=== PATIENT | female | born 1995 | race Caucasian/White ===

== ENCOUNTER 2019-09-24 16:28 | Inpatient (IN) | payer BC, OTHER ==
[2019-09-24] MEDS ORDERED: CARBOPROST TROMETHAMINE 250 MCG/ML 1 ML AMP IM PRN (17:03)
[2019-09-24] MEDS ORDERED: TERBUTALINE 1 MG/ML VIAL SQ PRN (17:03)
[2019-09-24] MEDS ORDERED: METHYLERGONOVINE 0.2 MG/ML 1 ML AMP IM PRN (17:03)
[2019-09-24] MEDS ORDERED: LIDOCAINE 0.5% (PF) 5 MG/ML (50 ML SDV) SQ PRN (17:03)
[2019-09-24] MEDS ORDERED: OXYTOCIN 10 UNIT/ML 1 ML VIAL IM PRN (17:03)
[2019-09-24] MEDS ORDERED: BUTORPHANOL 1 MG/ML 1 ML VIAL IV PRN (17:12)
--- NOTE | 2019-09-24 17:12 | P.HPOB ---
History of Present Illness H&P Date: 09/24/19 Chief Complaint: IUP @ 40 4/7 weeks, oligohydramnios This is a 24 yo at 40 4/7 weeks that presented to the office for routine PNV. US done revealing a 7# * ounce fetus with an OBEY of 4 c/w a diagnosis of oligohydramnios. she notes good FM, a reactive NST was obtained. she has been receiving routine care with myself, which has been essentially uncomplicated. she notes an occasional ctx, denies VB or LOF. she has a blood type of O pos, rubella immune, RPR NR, HIV neg, and HbSag neg. GBS culture was positive. Review of Systems Constitutional: Denies chills, Denies fatigue, Denies fever Ears, nose, mouth and throat: Denies headache Cardiovascular: Reports edema Respiratory: Denies dyspnea Gastrointestinal: Denies constipation, Denies diarrhea, Denies nausea, Denies vomiting Genitourinary: Reports Exam Osteopathic Statement: *. No significant issues noted on an osteopathic structural exam other than those noted in the History and Physical/Consult. targeted PE done today, in general this is a well bourished well developed preg nant female in NAD, breathing is noted to be non labored and heart has a RRR, abdomen is gravid and appropriate for GA, on VE she is ntoed to be 1/90/-3. catagory 1 heart tones are noted on NST. Assessment and Plan (1) Post-dates Status: Acute Code(s): O48.0 - POST-TERM SNOMED Code(s): 68453237 (2) Oligohydramnios Status: Acute Code(s): O41.00X0 - OLIGOHYDRAMNIOS, UNSP TRIMESTER, NOT APPLICABLE OR UNSP SNOMED Code(s): 50343490 (3) GBS (group B Streptococcus carrier), +RV culture, currently Status: Acute Code(s): O99.820 - STREPTOCOCCUS B CARRIER STATE COMPLICATING SNOMED Code(s): 2994809844710 Plan: This 24yo at 40 4/7 weeks is admitted to [facility] for induction of labor secondary to oligohydramnios. IV pitocin will be started for induction of labor, she is GBS positive and IV ampicillin will be ordered. stadol vs epidural for pain control during labor.
[2019-09-24] MEDS ORDERED: AMPICILLIN 2,000 MG in SODIUM CHLORIDE 0.9% 100 ML IVPB STA (19:56)
[2019-09-24 20:52] LABS: Amphetamine Screen,Urine Not Detected (NotDetected); Barbiturate Screen,Urine Not Detected (NotDetected); Benzodiazepines Screen,Urine Not Detected (NotDetected); Cocaine Screen,Urine Not Detected (NotDetected); Methadone Screen, Urine Not Detected (NotDetected); Opiate Screen,Urine Not Detected (NotDetected); Oxycodone Screen, Urine Not Detected (NotDetected); Phencyclidine Screen,Urine Not Detected (NotDetected); Tricyclic Antidepressant,Urine Not Detected (NotDetected); Urn Cannabinoid Scrn Detected (NotDetected)
[2019-09-25] MEDS: LACTATED RINGERS 1,000 ML IV SCH ×3 (00:17→21:52)
[2019-09-25] MEDS: OXYTOCIN 30 UNITS/500 ML NS 30 UNIT in SALINE 1 500ML.BAG IV SCH ×2 (00:17→21:50)
[2019-09-25 00:51] LABS: Basophils % (A) 0 %; Eosinophils # (A) 0.1 k/uL (0-0.7); Eosinophils % (A) 1 %; HCT 36.8 % (34.0-46.0); HGB 11.7 gm/dL (11.4-16.0); Lymphocytes # (A) 2.8 k/uL (1.0-4.8); Lymphocytes % (A) 20 %; MCH 27.3 pg (25.0-35.0); MCHC 31.7 g/dL (31.0-37.0); Mean Platelet Volume 8.9; Monocytes # (A) 0.7 k/uL (0-1.0); Monocytes % (A) 5 %; Neutrophils # (A) 10.5 k/uL (1.3-7.7); Neutrophils % (A) 73 %; Platelet Count 297 k/uL (150-450); RBC 4.28 m/uL (3.80-5.40); RDW 13.7 % (11.5-15.5); WBC 14.4 k/uL (3.8-10.6)
[2019-09-25] MEDS: AMPICILLIN 1,000 MG in SODIUM CHLORIDE 0.9% 50 ML IVPB SCH ×5 (04:09→21:49)
[2019-09-25] MEDS ORDERED: fentaNYL (PF) 50 MCG/ML 5 ML AMP ONE (09:19)
[2019-09-25] MEDS ORDERED: ROPIVACAINE 5MG/ML 20ML VIAL ONE (09:19)
[2019-09-25] MEDS ORDERED: SODIUM CHLORIDE 0.9% 100 ML BAG ONE (09:19)
[2019-09-25] MEDS ORDERED: OXYTOCIN 10 UNIT/ML 1 ML VIAL ONE (18:20)
[2019-09-25] MEDS ORDERED: ONDANSETRON 4 MG/2 ML VIAL ONE (18:20)
[2019-09-25] MEDS ORDERED: CITRIC ACID-SODIUM CITRATE 15 ML CUP PO ONE (18:20)
[2019-09-25] MEDS ORDERED: CHLOROPROCAINE 3% 30 MG/ML 20 ML VIAL ONE (18:20)
[2019-09-25] MEDS ORDERED: ACETAMINOPHEN TAB 325 MG TAB PO PRN (19:04)
[2019-09-25] MEDS ORDERED: diphenhydrAMINE 50 MG/ML 1 ML VIAL IVP PRN ×2 (19:04)
[2019-09-25] MEDS ORDERED: ONDANSETRON 4 MG/2 ML VIAL IVP PRN (19:04)
[2019-09-25] MEDS ORDERED: NALOXONE 0.4 MG/ML 1 ML VIAL IV PRN ×2 (19:04→19:07)
[2019-09-25] MEDS ORDERED: HYDROcodone/APAP 5-325MG 1 EACH TAB PO PRN (19:04)
[2019-09-25] MEDS ORDERED: diphenhydrAMINE 50 MG CAP PO PRN (19:04)
[2019-09-25] MEDS ORDERED: METOCLOPRAMIDE 5 MG/ML 2 ML VIAL IVP PRN (19:04)
[2019-09-25] MEDS ORDERED: ZOLPIDEM 5 MG TAB PO PRN (19:04)
[2019-09-25] MEDS ORDERED: SIMETHICONE 80 MG CHEWABLE PO PRN (19:04)
[2019-09-25] MEDS ORDERED: diphenhydrAMINE 25 MG CAP PO PRN (19:04)
[2019-09-25] MEDS ORDERED: MORPHINE SULFATE 2 MG/ML SYRINGE IVP PRN (19:07)
--- NOTE | 2019-09-25 19:14 | P.OP ---
Date of Procedure: 09/25/19 Preoperative Diagnosis: IUP at 40 and 4/sevenths weeks, oligohydramnios, arrest of descent Postoperative Diagnosis: Same plus nuchal 1, occiput transverse presentation. Procedure(s) Performed: Primary low transverse section Anesthesia: epidural (With Duramorph) Surgeon: Zee Sewell Pearl Peller #1: Chayo Matias Estimated Blood Loss (ml): 370 IV fluids (ml): 1,000 Urine output (ml): 100 Pathology: other (Placenta) Condition: stable Disposition: PACU Indications for Procedure: This pleasant 24-year-old 1 para 0 at 40-4/7 weeks presented to labor and delivery for induction of labor secondary to oligohydramnios. Patient was admitted and Pitocin induction of labor was begun. Patient progressed slowly through labor eventually undergoing amniotomy with scant fluid being obtained. Fluid was noted to be clear which could be visualized. Patient soon became uncomfortable requesting epidural placement. Epidural was placed patient was comfortable progressed to complete began pushing and had severe back pain doesn't having her ability to push. Patient stated she was unable to push, after approximately half an hour minimal descent was noted and patient was refusing to push therefore primary was performed. Operative Findings: Normal uterus tubes and ovaries were appreciated. Vigorous viable male delivered at 1837, weight of 7 lbs. 3 oz. with Apgars of 8 and 9 at one and 5 minutes respectively. Description of Procedure: Patient was taken back to the operating suite where epidural anesthesia was found be adequate by the anesthesia department. She was then prepped and draped in the normal sterile fashion in the dorsal supine position. A Pfannenstiel skin incision was made the scalpel and carried through the underlying layer of fascia. Fascia was then incised in the midline and extended laterally. The superior aspect of the fascial incision was then grasped jose c clamps, elevated and underlying rectus muscles dissected off sharply. The inferior aspect of the fascial incision was then grasped with Ludlow clamps, elevated and underlying rectus muscles dissected off sharply once again. The rectus muscles were in the midline the peritoneum was identified and entered. The bladder blade was then inserted. Vesicouterine peritoneum was identified and the bladder flap was then created using sharp and blunt dissection. The bladder blade was then reinserted into the pelvis. Hysterotomy incision was then made with the scalpel and the was then delivered in an occiput transverse presentation with a nuchal cord reduced 1. A delayed cord clamp of 1 minute was prereformed, and then the umbilical cord was doubly clamped and cut. The was then handed off to awaiting RN. The placenta was delivered manually with a three-vessel cord being noted. The uterus was delivered from the abdomen and once again cleared of all clots and debris. The hysterotomy incision was closed with 0 Vicryl in a running locked fashion from one lateral edge the other. A second layer of suture was used to obtain hemostasis. Hemostasis was appreciated. The uterus was then returned to the abdomen and gutters were cleared of all clots and debris. The hysterotomy site was inspected once again and hemostasis was appreciated. This fascia was then closed with 0 Vicryl in a running fashion. The subcutaneous tissue was then irrigated and found to be hemostatic. This was closed with 3-0 Vicryl in a running fashion. The skin was then closed with 4-0 Vicryl in a subcuticular fashion. Steri-Strips and sterile dressings were applied as needed. All counts are noted to be correct 2 patient and infant tolerated delivery well and are resting comfortably
[2019-09-25] MEDS ORDERED: OXYTOCIN 20 UNITS/1000 ML NS 1,000 ML IV SCH (19:15)
[2019-09-25] MEDS ORDERED: ACETAMINOPHEN IV (For NPO) 1,000 MG in EMPTY BAG 1 BAG IVPB ONE (19:30)
[2019-09-25] MEDS ORDERED: IBUPROFEN IV 800 MG in SODIUM CHLORIDE 0.9% 250 ML IV ONE (20:00)
[2019-09-25] MEDS: SENNOSIDES-DOCUSATE SODIUM 1 EACH TAB PO SCH (21:50)
[2019-09-26] MEDS: LACTATED RINGERS 1,000 ML IV SCH (03:00)
[2019-09-26 06:43] LABS: Basophils % (A) 0 %; Eosinophils # (A) 0.2 k/uL (0-0.7); Eosinophils % (A) 1 %; HCT 31.9 % (34.0-46.0); Lymphocytes # (A) 2.1 k/uL (1.0-4.8); Lymphocytes % (A) 13 %; MCH 27.1 pg (25.0-35.0); MCHC 31.5 g/dL (31.0-37.0); Mean Platelet Volume 8.9; Monocytes # (A) 0.8 k/uL (0-1.0); Monocytes % (A) 5 %; Neutrophils # (A) 13.7 k/uL (1.3-7.7); Neutrophils % (A) 81 %; Platelet Count 245 k/uL (150-450); RBC 3.71 m/uL (3.80-5.40); RDW 13.9 % (11.5-15.5)
--- NOTE | 2019-09-26 08:25 | P.PN ---
Progress Note - Text Progress Note Date: 09/26/19 (7AM) Patient is postop day 1 from section with Duramorph spinal. Pain score is 4/10. Patient denies nausea, vomiting, itching, headaches. Patient has ambulated.
--- NOTE | 2019-09-26 08:28 | P.PNOBGPC ---
Subjective - Subjective Principal diagnosis: POD 1 LTCS, Arrest of descent Interval history: Patient did well overnight. She is ambulating and voiding without difficulty. She is tolerating clear liquids without nausea or vomiting. She states her pain is well-controlled this morning Patient reports: Reports appetite normal, Reports voiding normally, Reports pain well controlled, Reports ambulating normally : doing well Objective - Vital Signs Latest vital signs: Vital Signs Temp Pulse Resp BP Pulse Ox 09/26/19 06:00 18 09/26/19 04:00 98.1 F 85 18 119/79 97 09/26/19 02:00 18 09/26/19 00:00 98.6 F 88 18 128/79 96 09/25/19 22:07 16 09/25/19 21:10 97.9 F 87 18 133/69 98 09/25/19 20:40 97.6 F 99 18 140/67 100 09/25/19 20:10 96 18 146/71 100 09/25/19 19:55 97 18 141/67 100 09/25/19 19:40 106 H 18 140/70 99 09/25/19 19:25 112 H 20 156/93 100 09/25/19 19:10 96.9 F L 117 H 20 166/82 99 Intake and Output 09/25/19 09/26/19 09/26/19 22:59 06:59 14:59 Output Total 1075 1100 Balance -1075 -1100 Output: Urine 800 1100 Uretheral (Carter) 500 Estimated Blood Loss 275 Other: Voiding Method Indwelling Catheter - Exam Extremities: Present: normal Abdomen: Present: normal appearance, soft Incision: Present: normal, dry, intact Uterus: Present: normal, firm - Labs Labs: Abnormal Lab Results - Last 24 Hours (Table) 09/26/19 Range/Units 06:31 WBC 17.0 H (3.8-10.6) k/uL RBC 3.71 L (3.80-5.40) m/uL Hgb 10.0 L D (11.4-16.0) gm/dL Hct 31.9 L (34.0-46.0) % Neutrophils # 13.7 H (1.3-7.7) k/uL Assessment and Plan (1) Post-dates Current Visit: No Status: Acute Code(s): O48.0 - POST-TERM SNOMED Code(s): 43599540 (2) Oligohydramnios Current Visit: No Status: Acute Code(s): O41.00X0 - OLIGOHYDRAMNIOS, UNSP TRIMESTER, NOT APPLICABLE OR UNSP SNOMED Code(s): 37895980 (3) GBS (group B Streptococcus carrier), +RV culture, currently Current Visit: No Status: Acute Code(s): O99.820 - STREPTOCOCCUS B CARRIER STATE COMPLICATING SNOMED Code(s): 1269533665327 (4) S/P section Current Visit: Yes Status: Acute Code(s): Z98.891 - HISTORY OF UTERINE SCAR FROM PREVIOUS SURGERY SNOMED Code(s): 104608568 (5) Arrest of descent, delivered, current hospitalization Current Visit: Yes Status: Acute Code(s): O62.1 - SECONDARY UTERINE INERTIA SNOMED Code(s): 54134611 Plan: Patient is doing well postoperatively will continue routine post operative care, anticipate discharge home tomorrow.
[2019-09-26] MEDS: IBUPROFEN 600 MG TAB PO PRN ×3 (08:44→21:38)
[2019-09-26] MEDS ORDERED: PRENATAL VIT-IRON-FOLIC ACID 1 EACH CAP PO SCH (09:00)
[2019-09-26] MEDS: SENNOSIDES-DOCUSATE SODIUM 1 EACH TAB PO SCH ×2 (09:31→21:38)
--- NOTE | 2019-09-27 08:39 | P.DS ---
Providers Date of admission: 09/24/19 19:49 Expected date of discharge: 09/27/19 Attending physician: Zee Sewell Primary care physician: Stated None - Discharge Diagnosis(es) (1) Post-dates Current Visit: No Status: Acute (2) Oligohydramnios Current Visit: No Status: Acute (3) GBS (group B Streptococcus carrier), +RV culture, currently Current Visit: No Status: Acute (4) S/P section Current Visit: Yes Status: Acute (5) Arrest of descent, delivered, current hospitalization Current Visit: Yes Status: Acute Hospital Course: This is a 24-year-old 1 para 0 that presented to labor and delivery at 40-4/7 weeks for induction of labor secondary to oligohydramnios noted at her routine visit. Ultrasound was done revealing a 7 lbs. 8 oz. fetus with a amniotic fluid index of 4 consistent with a diagnosis oligohydramnios. NST was obtained in the office and reactive, category 1. Patient had been receiving routine care which is essentially uncomplicated. For full details on this patient please see the dictated history and physical. Patient was admitted and Pitocin induction of labor was started per hospital protocol. Patient made slow progress of the evening in the morning underwent a scant amniotomy where a small amount of clear fluid was obtained. Patient progressed through labor eventually becoming uncomfortable and requesting epidural placement. Epidural was placed without difficulty by the anesthesia department. Patient slowly progressed to complete began pushing after approximately one half hour pushing patient subsequently stated she no longer wanted to push secondary to significant back pain. Patient continued to push a few times further been requesting primary . Discussion was had with the patient in subsequently patient was taken back for primary . was perfor med without difficulty for further details on the please see the operative report. A liveborn male was delivered at 1837 with a weight of 7 lbs. 3 oz. and Apgars of 8 and 9 at one and 5 minutes respectively. Patient's course has been essentially uneventful. On this day #2 she is ambulating and voiding without difficulty. She is tolerating a regular diet without nausea or vomiting. She states her pain is controlled with oral ibuprofen. She would like discharge home. Patient Condition at Discharge: Good Plan - Discharge Summary New Discharge Prescriptions: No Action Pnv,Calcium 72/Iron/Folic Acid [ Plus Tablet] 1 tab PO DAILY Discharge Medication List Pnv,Calcium 72/Iron/Folic Acid [ Plus Tablet] 1 tab PO DAILY 09/24/19 [History] Follow up Appointment(s)/Referral(s): Zee Sewell DO [Doctor of Osteopathic Medicine] - 2 Weeks Patient Instructions/Handouts: (GEN), (DC) Activity/Diet/Wound Care/Special Instructions: No tub baths or intercourse until 6 weeks . Patient is to follow-up in 2 weeks for routine incision check, she states oral ibuprofen 600 mg has been controlling her pain we will continue this at home. Patient is to use [id number] ibuprofen for discomfort. Patient is to call the office with any concerns regarding redness or discharge from her incision or concerns and general prior to HER-2 week post op visit. Discharge Disposition: HOME SELF-CARE
[2019-09-27 08:53] VITALS: PULSE 84; RESP 18; TEMP 97.8
[2019-09-27] MEDS: IBUPROFEN 600 MG TAB PO PRN (10:39)
[2019-09-27] MEDS: SENNOSIDES-DOCUSATE SODIUM 1 EACH TAB PO SCH (11:04)
[2019-09-27 12:38] VITALS: BP 138/82
== END 2019-09-27 13:15 | disposition home or self-care (01) | DRG 787 ==
LOC: 4FBP 19:49
PROVIDERS: ADMIT Obstetrics & Gynecology Obstetrics; ATTEND Obstetrics & Gynecology Obstetrics
PROC: 00HU33Z Insertion of Infusion Device into Spinal Canal, Percutaneous Approach (ICD-10-PCS; 2019-09-24)
PROC: 3E0P7VZ Introduction of Hormone into Female Reproductive, Via Natural or Artificial Opening (ICD-10-PCS; 2019-09-24)
PROC: 10907ZC Drainage of Amniotic Fluid, Therapeutic from Products of Conception, Via Natural or Artificial Opening (ICD-10-PCS; 2019-09-24)
PROC: 3E0R3NZ Introduction of Analgesics, Hypnotics, Sedatives into Spinal Canal, Percutaneous Approach (ICD-10-PCS; 2019-09-24)
PROC: 10D00Z1 Extraction of Products of Conception, Low, Open Approach (ICD-10-PCS; principal; 2019-09-25 18:15)
DX: O48.0 Post-term pregnancy (principal); O41.03X0 Oligohydramnios, third trimester, not applicable or unspecified; O32.2XX0 Maternal care for transverse and oblique lie, not applicable or unspecified; O62.1 Secondary uterine inertia; O69.81X0 Labor and delivery complicated by cord around neck, without compression, not applicable or unspecified; O99.824 Streptococcus B carrier state complicating childbirth; Z37.0 Single live birth; Z3A.40 40 weeks gestation of pregnancy
CPT/HCPCS: 80306; 85025; 86850; 86900; 86901